=== PATIENT | female | born 1995 | race Caucasian/White ===

== ENCOUNTER 2016-12-04 18:19 | Emergency (ER) | payer MEDICAID ==
[2016-12-04 19:25] LABS: BILIRUBIN,URINE NEGATIVE (NEGATIVE); PH,URINE 5.5 PH (5.0-7.5)
[2016-12-04 19:28] LABS: UA w/ MICROSCOPIC CHARGE YES
--- NOTE | 2016-12-04 19:30 | ED Physician Documentation ---
PD HPI ABD PAIN - Stated complaint Stated Complaint: 18 WKS/AB PX - Chief complaint Chief Complaint: Abd Pain - History obtained from History obtained from: Patient - History of Present Illness Timing - onset: Other ( at 18 weeks gestation complains of 2 weeks of intermittent right upper quadrant pain worse after eating and now constant for the last day. It is nonradiating. She has very mild nausea but no vomiting. No changes in her bowel movements. No pelvic cramping or bleeding.) Review of Systems Ten Systems: 10 systems reviewed and negative Constitutional: denies: Fever, Chills Respiratory: denies: Wheezing GI: denies: Diarrhea, Hematemesis, Bloody / black stool : denies: Dysuria, Frequency PD PAST MEDICAL HISTORY - Past Medical History Past Medical History: Yes Musculoskeletal: Scoliosis - Past Surgical History Past Surgical History: Yes - Present Medications Home Medications: Ambulatory Orders Medication Instructions Recorded Confirmed Cephalexin [Keflex] 500 mg PO QID #40 capsule 12/04/16 Pnv No.122/Iron/Folic Acid 1 tab PO DAILY 12/04/16 12/04/16 [ Multi Tablet] - Allergies Allergies/Adverse Reactions: Allergies Allergy/AdvReac Type Severity Reaction Status Date / Time No Known Drug Allergies Allergy Verified 12/04/16 18:28 - Social History Does the pt smoke?: No Smoking Status: Former smoker Does the pt drink ETOH?: No Does the pt have substance abuse?: No - Family History Family history: reports: Non contributory - Immunizations Immunizations are current?: Yes - POLST Patient has POLST: No PD ED PE NORMAL - Vitals Vital signs reviewed: Yes - General General: Alert and oriented X 3, No acute distress - HEENT HEENT: PERRL, EOMI - Neck Neck: Supple, no meningeal sign, No bony TTP - Cardiac Cardiac: RRR, No murmur - Respiratory Respiratory: No respiratory distress, Clear bilaterally - Abdomen Abdomen: Other (Mild tenderness right upper quadrant with negative Fritz sign, no guarding or rebound. Bedside ultrasound shows single live intrauterine with a heart rate of 154.) - Back Back: No CVA TTP, No spinal TTP - Extremities Extremities: No edema, No calf tenderness / cord - Neuro Neuro: Alert and oriented X 3, Normal speech - Psych Psych: Normal mood, Normal affect Results - Vitals Vitals: Vital Signs - 24 hr 12/04/16 12/04/16 18:22 20:51 Temperature 36.4 C L Heart Rate 94 88 Respiratory 18 14 Rate Blood Pressure 124/75 113/61 O2 Saturation 97 99 Oxygen O2 Source Room air - Labs Labs: Laboratory Tests 12/04/16 12/04/16 12/04/16 18:50 19:47 19:47 WBC 7.7 RBC 4.36 Hgb 13.0 Hct 36.9 L MCV 84.6 MCH 29.8 MCHC 35.3 RDW 15.1 H Plt Count 199 MPV 7.5 L Neut # 5.0 Lymph # 2.1 [place] # 0.5 Eos # 0.1 Baso # 0.1 Absolute Nucleated RBC 0.01 Nucleated RBCs 0.1 Sodium 137 Potassium 3.5 Chloride 104 Carbon Dioxide 24 Anion Gap 9.0 BUN 10 Creatinine 0.4 Estimated GFR (MDRD) 203 Glucose 88 Calcium 9.5 Total Bilirubin 0.4 AST 20 ALT 14 Alkaline Phosphatase 45 Total Protein 6.8 Albumin 3.5 Globulin 3.3 Albumin/Globulin Ratio 1.1 Lipase 30 Urine Color YELLOW Urine Clarity CLEAR Urine pH 5.5 Ur Specific [place] >=1.030 H Urine Protein NEGATIVE Urine Glucose (UA) NEGATIVE Urine Ketones NEGATIVE Urine Occult Blood NEGATIVE Urine Nitrite NEGATIVE Urine Bilirubin NEGATIVE Urine Urobilinogen 0.2 (NORMAL) Ur Leukocyte Esterase TRACE H Urine RBC 0-5 Urine WBC 6-10 H Ur Squamous Epith Cells MANY Squamous H Urine Bacteria Rare Ur Microscopic Review INDICATED Urine Culture Comments NOT INDICATED - Rads (name of study) RUQ sono Radiology: EMP read contemporaneously (negative) PD MEDICAL DECISION MAKING - ED course ED course: 21-year-old woman with 2 weeks of intermittent abdominal pain, right upper quadrant now more constant for the last day, there is some association with eating. This is all consistent with a biliary etiology, however her ultrasound was negative. Appendicitis is considered but her pain would be quite high even noting that the appendix would be high given her gravid state. She does have bacteriuria, albeit on a contaminated sample, this could be pyelonephritis but it seems atypical but will cover her with Keflex. Given appendicitis precautions. Departure - Departure Disposition: 01 Home, Self Care Clinical Impression: Abdominal pain, Bacteria in urine Condition: Good Record reviewed to determine appropriate education?: Yes Instructions: Abdominal Pain Prescriptions: Cephalexin [Keflex] 500 mg PO QID #40 capsule Comments: Return in 12 hours to 24 hours if not improving, anytime if worse or if your symptoms change or if you run a fever.
[2016-12-04 19:36] LABS: UR CULTURE IF IND NOT INDICATED
[2016-12-04 19:54] LABS: BASOPHILS # (AUTO) 0.1 10^3/uL (0.0-0.1); BASOPHILS % (AUTO) 0.8 %; EOSINOPHILS # (AUTO) 0.1 10^3/uL (0.0-0.7); HCT - HEMATOCRIT 36.9 % (37.0-47.0); LYMPHOCYTES # (AUTO) 2.1 10^3/uL (1.5-3.5); LYMPHOCYTES % (AUTO) 27.1 %; MEAN CORPUSCULAR HEMOGLOBIN 29.8 pg (27.0-31.0); MEAN CORPUSCULAR HGB CONC 35.3 g/dL (32.0-36.0); MEAN CORPUSCULAR VOLUME 84.6 fL (81.0-99.0); MEAN PLATELET VOLUME 7.5 fL (7.9-10.8); MONOCYTES # (AUTO) 0.5 10^3/uL (0.0-1.0); MONOCYTES % (AUTO) 6.2 %; NEUTROPHILS % (AUTO) 64.9 %; NUCLEATED RED BLOOD CELLS AUTO 0.1 /100WBC; RED BLOOD COUNT 4.36 10^6/uL (4.20-5.40); RED CELL DISTRIBUTION WIDTH 15.1 % (12.0-15.0); UNCORRECTED WHITE BLOOD COUNT 7.7 x10^3/uL; WHITE BLOOD COUNT 7.7 x10^3/uL (4.8-10.8)
[2016-12-04 20:07] LABS: ALBUMIN/GLOBULIN RATIO 1.1 (1.0-2.2); BILIRUBIN,TOTAL 0.4 mg/dL (0.2-1.0); CALCIUM 9.5 mg/dL (8.5-10.3); CREATININE 0.4 mg/dL (0.4-1.0); POTASSIUM 3.5 mmol/L (3.5-5.0); TOTAL PROTEIN 6.8 g/dL (6.7-8.2)
--- NOTE | 2016-12-04 20:49 | Ultrasound Preliminary Report ---
Exam: US Abdomen Limited IMPRESSION: Contracted gallbladder. No obvious gallstones or bile duct obstruction. [facility] SITE ID: [id number]
[2016-12-04 20:52] VITALS: BP 113/61
--- NOTE | 2016-12-04 20:52 | Ultrasound Report ---
EXAM: ABDOMEN ULTRASOUND LIMITED, RUQ EXAM DATE: 12/04/2016 08:21 PM. CLINICAL HISTORY: Ruq PAIN, PREG. COMPARISON: None. TECHNIQUE: Real-time scanning was performed with static images obtained. FINDINGS: Liver: Hyperechoic liver echotexture. No focal liver lesions. 17.5 cm. Main portal vein flow: Hepatop etal. Gallbladder: The gallbladder is contracted. No obvious gallstones. Cholecystic fluid collections. Biliary System: CBD measures 3 mm. No intrahepatic or extrahepatic ductal dilatation. Other: No right hydronephrosis. The visualized pancreas, aorta and IVC are unremarkable. IMPRESSION: Contracted gallbladder. No obvious gallstones or bile duct obstruction. [facility] Referring Provider Line: [phone] SITE ID: [id number]
[2016-12-04] MEDS ORDERED: CEPHALEXIN 250 MG CAPSULE PO STA (21:08)
[2016-12-04] MEDS ORDERED: CEPHALEXIN 250 MG CAPSULE PO ONE (21:15)
== END 2016-12-04 21:15 | disposition home or self-care (01) ==
LOC: ED 18:19
DX: O26.892 Other specified pregnancy related conditions, second trimester (principal); R10.11 Right upper quadrant pain; R82.71 Bacteriuria; Z3A.18 18 weeks gestation of pregnancy; Z87.891 Personal history of nicotine dependence
CPT/HCPCS: 36415; 76705; 80053; 81001; 83690; 85025; 99283; 99284; A9270; 81003; 87086